=== PATIENT | male | born 1945 | race Caucasian/White ===

== ENCOUNTER 2024-01-22 07:43 | Day surgery (SDC) | payer OTHER, SELFPAY ==
--- NOTE | 2024-01-22 | PATH_ITS ---
[facility] Accession Number: [id number] No. of containers..01 Tissue . 01 Material submitted: . colon - HEPATIC FLEXURE POLYP . 01 Diagnosis: HEPATIC FLEXURE POLYP: Tubular adenoma. [facility] 01/30/20241455 Local . 01 Electronically signed: . Joshua Kimbrough MD, Pathologist NPI- [id number] . 01 Gross description: . Received in formalin with two identifiers and hepatic flexure polyp, are two nair soft tissue fragments, 0.2 cm in greatest dimension. Submitted in A1. ([id number]) /MRV 01/30/20241455 Local . 01 Pathologist provided ICD-10: D12.3 . 01 CPT . 006867 Specimen Comment: A courtesy copy of this report has been sent to [phone] Performed at: 01 [facility] [address] [place] [address] [id number] MD Joshua Kimbrough MD Phone: [phone]
[2024-01-22 08:18] VITALS: BP 141/77; PULSE 89; RESP 18; TEMP 36.1; O2SAT 97
[2024-01-22] MEDS: LACTATED RINGERS 1,000 ML 42 ML IV (08:28)
--- NOTE | 2024-01-22 08:47 | PM.HP.1 ---
History of Present Illness History of Present Illness Date Patient Seen: 01/22/24 Chief complaint: Dx Colonoscopy w/poss bx Narrative: History of large colon polyp. Need to follow-up to ensure complete removal. [facility] Medical History (Updated 01/22/24 @ 08:16 by Kaci Banks RN) Hypertension Social History Smoking Status: Former smoker alcohol intake: current Meds Home Medications and Allergies Home Medications Medication Instructions Recorded Confirmed Type amlodipine 2.5 mg tablet 2.5 mg PO DAILY 01/22/24 01/22/24 History finasteride 5 mg tablet 5 mg PO DAILY 01/22/24 01/22/24 History losartan 100 mg tablet 100 mg PO DAILY 01/22/24 01/22/24 History Allergies Allergy/AdvReac Type Severity Reaction Status Date / Time No Known Drug Allergies Allergy Verified 01/22/24 08:00 Exam Vital Signs (past 8 hours): - 01/22/24 08:18 Temperature 97 F L Pulse Rate 89 Respiratory Rate 18 Blood Pressure 141/77 H Pulse Oximetry 97 Oxygen Delivery Method Room Air Oxygen Delivery Method Room Air Narrative Exam Narrative: Oropharynx free of lesions Chest clear to auscultation percussion Cardiac exam reveals no S3 or murmur Assessment & Plan Assessment & Plan narrative: History of large colon polyp need to check for complete removal. Risks, benefits, alternatives have been explained.
--- NOTE | 2024-01-22 08:48 | PM.OP.COLON ---
Operative Date/Time/Diagnoses Date of procedure: 01/22/24 Pre-op diagnosis: See indication the findings Procedure & Clinicians Study performed: Colonoscopy Indications: History of large colon polyp need to check for complete removal Surgeon: Georgia Knapp Procedure Notes Procedure in detail: After informed consent was obtained the patient was placed in left lateral decubitus position. The video colonoscope was introduced the rectum slowly advanced cecum. Preparation was good. On slow withdrawal mucosa was carefully examined. The scope was removed. The patient tolerated procedure well. Blood loss none Complications none Sedation mac Findings 1. 6 mm sessile polyp in the hepatic flexure Jumbo biopsies x2 and removed completely 2. Large rectal tattoo without any evidence of residual polyp 3. Otherwise negative colonoscopy to cecum Will be in touch with with patient regarding his pathology but I expect this will be his last colonoscopy.
[2024-01-22 09:41] VITALS: BP 101/49; PULSE 60; RESP 19; TEMP 36.2; O2SAT 90
[2024-01-22 09:46] VITALS: BP 104/63; PULSE 60; RESP 17; O2SAT 94
[2024-01-22 09:52] VITALS: BP 115/86; PULSE 74; RESP 15; TEMP 36.2; O2SAT 98
[2024-01-22 09:59] VITALS: BP 130/71; PULSE 60; RESP 19; TEMP 36.2; O2SAT 96
== END 2024-01-22 10:14 | disposition home or self-care (01) ==
PROVIDERS: Family Provider Family Medicine; PCP Nurse Practitioner; Referring Provider Internal Medicine Gastroenterology; Visit Provider Internal Medicine Gastroenterology
PROC: 0DJD8ZZ Inspection of Lower Intestinal Tract, Via Natural or Artificial Opening Endoscopic (ICD-10-PCS; CPT 45378; principal; 2024-01-22 09:00)
DX: Z12.11 Encounter for screening for malignant neoplasm of colon (principal); Z86.010 Personal history of colon polyps; D12.3 Benign neoplasm of transverse colon
CPT/HCPCS: 45380; J2704